=== PATIENT | female | born 1990 | race Caucasian/White ===

== ENCOUNTER 2023-09-17 20:51 | Emergency (ER) | payer OTHER, SELFPAY ==
[2023-09-17] MEDS ORDERED: Naloxone HCl 0.4 mg/ml Vial ONE (21:18)
[2023-09-17] MEDS ORDERED: Naloxone HCl 2 mg/2 ml Syringe IV SCH (21:30)
== END 2023-09-17 22:48 | disposition home or self-care (01) ==
LOC: CSHERS 20:51
DX: F11.10 Opioid abuse, uncomplicated (principal); I95.9 Hypotension, unspecified
CPT/HCPCS: 96372; 99284; J2310